=== PATIENT | female | born 1955 | race Caucasian/White ===

== ENCOUNTER → 2016-09-11 | Outpatient (CLI) | payer BC ==
[~2016-09-11] MED LIST: CALC600T13 PO; CHOL1000 PO; MULTTAB58 PO; NAPR220T40 PO; OMEG10002 PO; PRED1SUS3; TERI600S SQ
[2016-09-11 10:48] LABS: CALCIUM 9.4 mg/dl (8.5-10.1)
[2016-09-11 11:07] LABS: THYROID STIMULATING HORMONE 1.1 uIu/ml (0.300-4.500)
== END | disposition home or self-care (01) ==
LOC: C.LAB1850 08:53
PROVIDERS: ATTEND Physician Assistant
DX: M81.0 Age-related osteoporosis without current pathological fracture (principal); E03.9 Hypothyroidism, unspecified

== ENCOUNTER → 2016-10-02 | Outpatient (CLI) | payer BC ==
--- NOTE | 2016-10-02 14:56 | MAMMOGRAPHY REPORT ---
BILATERAL DIGITAL SCREENING MAMMOGRAM TOMOSYNTHESIS WITH CAD: 10/02/2016 CLINICAL HISTORY: Routine screening. Patient has no complaints. TECHNIQUE: Breast tomosynthesis in addition to standard 2D mammography was performed. Current study was also evaluated with a Computer Aided Detection (CAD) system. COMPARISON: Comparison is made to exams dated: 09/30/2015 mammogram, 09/26/2014 mammogram, 09/25/2013 mammogram, 09/17/2011 mammogram, 09/16/2010 mammogram, and 09/22/2012 mammogram - [facility]. BREAST COMPOSITION: The tissue of both breasts is heterogeneously dense, which may obscure small ma sses. FINDINGS: No suspicious masses, calcifications, or areas of architectural distortion are noted in e ither breast. There has been no significant interval change compared to prior exams. Bilateral yanick gn-appearing calcifications are not significantly changed. Left inferior breast asymmetry is stable compared to prior exams. There is increased breast density bilaterally compared to prior exams, wh ich is symmetric bilaterally and may be due to weight loss. IMPRESSION: ACR BI-RADS CATEGORY 2: BENIGN There is no mammographic evidence of malignancy. A 1 year screening mammogram is recommended. The p atient will receive written notification of the results. Approximately 10% of breast cancers are not detected with mammography. A negative mammographic repor t should not delay biopsy if a clinically suggestive mass is present. Sarah Lerma M.D. /:10/02/2016 08:01:16 Match Maker: Gely Rodriguez, [facility] letter sent: Normal 1/2 BI-RADS Code: ACR BI-RADS Category 2: Benign
== END | disposition home or self-care (01) ==
LOC: C.MAMM 07:46
PROVIDERS: ATTEND Obstetrics & Gynecology
DX: Z12.31 Encounter for screening mammogram for malignant neoplasm of breast (principal)

== ENCOUNTER → 2017-08-06 | Outpatient (CLI) | payer BC | END | disposition home or self-care (01) | LOC: C.LAB1850 09:16 | PROVIDERS: ATTEND Internal Medicine Endocrinology, Diabetes & Metabolism | DX: M81.0 Age-related osteoporosis without current pathological fracture (principal) ==

== ENCOUNTER → 2017-10-08 | Outpatient (CLI) | payer BC ==
--- NOTE | 2017-10-11 14:32 | MAMMOGRAPHY REPORT ---
BILATERAL DIGITAL SCREENING MAMMOGRAM TOMOSYNTHESIS WITH CAD: 10/08/2017 CLINICAL HISTORY: Routine screening. Patient has no complaints. TECHNIQUE: Breast tomosynthesis in addition to standard 2D mammography was performed. Current study was also evaluated with a Computer Aided Detection (CAD) system. COMPARISON: Comparison is made to exams dated: 10/02/2016 mammogram, 09/30/2015 mammogram, 09/26/2014 m ammogram, 09/25/2013 mammogram, 09/22/2012 mammogram, and 09/17/2011 mammogram - [facility] enter. BREAST COMPOSITION: The tissue of both breasts is extremely dense, which lowers the sensitivity of m ammography. FINDINGS: There is a partially visualized nodular 7 mm asymmetry seen within the right superior poste rior breast on the MLO view possibly projecting laterally on the cc view, for which spot compression tomosynthesis views and possible breast ultrasound are recommended for further evaluation. Additiona lly, recommend repeat left MLO view to attempt to include more posterior tissue and pectoralis muscle . The remainder of both breasts are stable compared to prior exams, without suspicious masses, calcific ations, or areas of architectural distortion noted. IMPRESSION: ACR BI-RADS CATEGORY 0: INCOMPLETE EVALUATION: NEED ADDITIONAL IMAGING EVALUATION Right breast asymmetry, for which additional imaging evaluation is recommended. Also recommend repea t left MLO view as described above. The patient will be called to schedule an appointment. Approximately 10% of breast cancers are not detected with mammography. A negative mammographic report should not delay biopsy if a clinically suggestive mass is present. Sarah Lerma M.D. /:10/08/2017 15:27:36 Enterprise Resource Planner: Erika THOMASON(Clyde)(Adolfo)(BD), [facility] letter sent: Addl Imaging 0 BI-RADS Code: ACR BI-RADS Category 0: Incomplete Evaluation: Need Additional Imaging Evaluation
== END | disposition home or self-care (01) ==
LOC: C.MAMM 09:54
PROVIDERS: ATTEND Obstetrics & Gynecology
DX: Z12.31 Encounter for screening mammogram for malignant neoplasm of breast (principal); N64.89 Other specified disorders of breast

== ENCOUNTER → 2017-10-21 | Outpatient (CLI) | payer BC ==
--- NOTE | 2017-10-21 15:32 | MAMMOGRAPHY REPORT ---
UNILATERAL RIGHT DIGITAL DIAGNOSTIC MAMMOGRAM TOMOSYNTHESIS AND TARGETED RIGHT ULTRASOUND: 10/21/2017 CLINICAL HISTORY: Callback from screening mammogram for right breast asymmetry. TECHNIQUE: Breast tomosynthesis in addition to standard 2D mammography was performed. Spot compress ion right CC and MLO 2D and tomosynthesis images, full-field right MLO tomosynthesis images and 2D le ft MLO view was obtained. COMPARISON: Comparison is made to exams dated: 10/08/2017 mammogram, 10/02/2016 mammogram, 09/30/2015 ma mmogram, 09/26/2014 mammogram, 09/25/2013 mammogram, and 09/22/2012 mammogram - [facility]. BREAST COMPOSITION: The tissue of the right breast is extremely dense, which lowers the sensitivity of mammography. FINDINGS: The previously described asymmetry seen within the right slightly superior posterior breast on the MLO view is less prominent on the additional views and has the appearance of fibroglandular t issue on the tomosynthesis images without a discrete mass seen. No correlate is seen on the cc view. The repeat left MLO view shows no suspicious masses, calcifications, or areas of architectural dist ortion. Targeted ultrasound was performed of the right upper outer and upper inner quadrants including the 9: 00, 3:00, and subareolar breast to evaluate the asymmetry seen on one view only. No suspicious alejandra s or other suspicious sonographic abnormalities are evident. Incidentally noted in the right 10:00 b reast, 5 cm from the nipple is an oval anechoic benign simple cyst measuring 4 x 5 x 2 mm. IMPRESSION: ACR-BI-RADS CATEGORY 3: PROBABLY BENIGN, TARGETED ULTRASOUND ACR-BI-RADS CATEGORY 3: PRO BABLY BENIGN The right breast asymmetry is less prominent on the additional images, without a corresponding suspic ious sonographic abnormality evident. Findings are probably benign and likely represent normal fibro glandular tissue. Recommend follow-up diagnostic tomosynthesis mammograms and possible ultrasound of the right breast in 6 months to reevaluate. The patient has been verbally notified of the results. Approximately 10% of breast cancers are not detected with mammography. A negative mammographic report should not delay biopsy if a clinically suggestive mass is present. Sarah Lerma M.D. /:10/21/2017 14:22:20 Microbiology Analyst: Gely Rodriguez, [facility] letter sent: Follow Up Recommended 3 BI-RADS Code: ACR-BI-RADS Category 3: Probably Benign Ultrasound BI-RADS: ACR-BI-RADS Category 3: Pr obably Benign
== END | disposition home or self-care (01) ==
LOC: C.MAMM 13:29
PROVIDERS: ATTEND Obstetrics & Gynecology
DX: N64.89 Other specified disorders of breast (principal)